=== PATIENT | male | born 1940 | race Caucasian/White ===

== ENCOUNTER → 2017-09-28 | Outpatient (CLI) | payer MEDICARE | END | disposition home or self-care (01) | LOC: RAD 15:39 | PROVIDERS: ATTEND Internal Medicine | DX: M79.89 Other specified soft tissue disorders (principal); R60.0 Localized edema; M79.604 Pain in right leg ==

== ENCOUNTER 2018-08-25 17:42 | Inpatient (IN) | payer MEDICARE ==
[~2018-08-25] VITALS: Ht 182.9 cm; Wt 65.0 kg
[2018-08-25] MEDS ORDERED: SODIUM CHLORIDE FLUSH 10ML SYR IVF ONE (18:00)
[2018-08-25] MEDS ORDERED: DEXTROSE 50%, 50ML SYRINGE IVPush ONE (18:00)
[2018-08-25] MEDS ORDERED: DEXTROSE 50%, 50ML SYRINGE ONE (18:21)
[2018-08-25 18:28] LABS: BASOPHILS # (AUTO) 0.05 x10^3/uL (0-0.1); BASOPHILS % (AUTO) 0 % (0-1); EOSINOPHILS # (AUTO) 0.17 x10^3/uL (0-0.4); EOSINOPHILS % (AUTO) 1 % (1-7); LYMPHOCYTES # (AUTO) 2.14 x10^3/uL (1-3.4); LYMPHOCYTES % (AUTO) 14 % (22-44); MD NO; MEAN CORPUSCULAR HEMOGLOBIN 29.4 pg (27.5-34.5); MEAN CORPUSCULAR HGB CONC 33.9 g/dL (33.2-36.2); MEAN CORPUSCULAR VOLUME 86.5 fL (81-97); MONOCYTES # (AUTO) 0.83 x10^3/uL (0.2-0.8); MONOCYTES % (AUTO) 5 % (2-9); NEUTROPHILS # (AUTO) 12.13 x10^3/uL (1.8-6.8); NEUTROPHILS % (AUTO) 79 % (42-75); PLATELET COUNT 306 x10^3/uL (130-400); RED BLOOD COUNT 4.71 x10^6/uL (4.38-5.82); RED CELL DISTRIBUTION WIDTH 14.3 % (9.4-14.8)
[2018-08-25 18:47] LABS: TROPONIN I < 0.015 ng/mL (0.000-0.045)
[2018-08-25 18:48] LABS: ALBUMIN 4.3 g/dL (3.4-5.0); ANION GAP 10 mmol/L (5-15); CALCIUM 9.2 mg/dL (8.5-10.1); CHLORIDE 109 mmol/L (98-107)
[2018-08-25 18:52] LABS: ALANINE AMINOTRANSFERASE 42 U/L (12-78); ALKALINE PHOSPHATASE 76 U/L (45-117); BILIRUBIN,TOTAL 0.3 mg/dL (0.2-1.0); CREATININE 1.55 mg/dL (0.7-1.3); TOTAL PROTEIN 8.1 g/dL (6.4-8.2)
[2018-08-25] MEDS ORDERED: SODIUM CHLORIDE 0.9% 1,000 ML IV SCH (20:21)
[2018-08-25] MEDS ORDERED: INSU300I SC (20:25)
[2018-08-25] MEDS ORDERED: OMEG-14 PO (20:25)
[2018-08-25] MEDS ORDERED: LOSA1TAB22 PO (20:25)
[2018-08-25] MEDS ORDERED: SAW1CAPS2 PO (20:25)
[2018-08-25] MEDS ORDERED: LINA5TAB PO (20:25)
[2018-08-25] MEDS ORDERED: GLUC-121 PO (20:25)
[2018-08-25] MEDS ORDERED: SIMV20TA3 PO (20:25)
[2018-08-25] MEDS ORDERED: CHOL200085 PO (20:25)
[2018-08-25] MEDS ORDERED: METF500T17 PO (20:25)
[2018-08-25] MEDS ORDERED: AMLO10TA6 PO (20:25)
[2018-08-25] MEDS ORDERED: FOLI20CA PO (20:25)
[2018-08-25] MEDS ORDERED: CARV25TA12 PO (20:25)
[2018-08-25] MEDS ORDERED: ASPI-496 PO (20:25)
[2018-08-25] MEDS ORDERED: ALBI50PE3 SC (20:25)
[2018-08-25] MEDS ORDERED: CYAN250013 PO (20:25)
[2018-08-25] MEDS ORDERED: ONDANSETRON ODT 4 MG PO PRN (20:30)
[2018-08-25] MEDS ORDERED: hydrALAzine 20 MG/ML, 1ML IVPush PRN (20:30)
[2018-08-25] MEDS ORDERED: DOCUSATE 100 MG CAPSULE PO PRN (20:30)
[2018-08-25] MEDS ORDERED: LABETALOL 5MG/ML, 20ML IVPush PRN (20:30)
[2018-08-25] MEDS ORDERED: BISACODYL 10 MG SUPP PR PRN (20:30)
[2018-08-25] MEDS ORDERED: PROMETHAZINE 25 MG/ML, 1ML IM PRN (20:30)
[2018-08-25] MEDS ORDERED: POLYETHYLENE GLYCOL 17 GM PACKET PO PRN (20:30)
[2018-08-25] MEDS ORDERED: ACETAMINOPHEN 325 MG TABLET PO PRN (20:30)
[2018-08-25] MEDS ORDERED: ONDANSETRON 2MG/ML, 2ML IVPush PRN (20:30)
[2018-08-25 21:00] LABS: FREE T4 (FREE THYROXINE) 1.15 ng/dL (0.76-1.46); THYROID STIMULATING HORMONE 2.88 mIU/L (0.358-3.740)
[2018-08-25] MEDS: SIMVASTATIN 20 MG TABLET PO SCH ×2 (21:00→22:05)
[2018-08-25 21:33] LABS: HEMOGLOBIN A1C 8.1 % (4.2-6.3)
[2018-08-25 22:44] LABS: MICROSCOPIC NOT IND
[2018-08-25 22:53] LABS: CULTURE INDICATED? NO
[2018-08-26 01:10] VITALS: BP 162/81
[2018-08-26 03:54] VITALS: BP 159/78
[2018-08-26 05:26] LABS: BASOPHILS # (AUTO) 0.03 x10^3/uL (0-0.1); BASOPHILS % (AUTO) 0 % (0-1); EOSINOPHILS # (AUTO) 0.13 x10^3/uL (0-0.4); EOSINOPHILS % (AUTO) 1 % (1-7); LYMPHOCYTES # (AUTO) 1.53 x10^3/uL (1-3.4); LYMPHOCYTES % (AUTO) 16 % (22-44); MD NO; MEAN CORPUSCULAR HEMOGLOBIN 29.3 pg (27.5-34.5); MEAN CORPUSCULAR HGB CONC 34.2 g/dL (33.2-36.2); MEAN CORPUSCULAR VOLUME 85.6 fL (81-97); MEAN PLATELET VOLUME 7.9 fL (7.4-10.4); MONOCYTES # (AUTO) 0.69 x10^3/uL (0.2-0.8); MONOCYTES % (AUTO) 8 % (2-9); NEUTROPHILS # (AUTO) 6.92 x10^3/uL (1.8-6.8); NEUTROPHILS % (AUTO) 75 % (42-75); PLATELET COUNT 228 x10^3/uL (130-400); RED BLOOD COUNT 4.41 x10^6/uL (4.38-5.82); RED CELL DISTRIBUTION WIDTH 13.9 % (9.4-14.8)
[2018-08-26 05:30] LABS: ALBUMIN 3.5 g/dL (3.4-5.0); ANION GAP 8 mmol/L (5-15); CALCIUM 8.4 mg/dL (8.5-10.1); CHLORIDE 107 mmol/L (98-107)
[2018-08-26 05:34] LABS: ALANINE AMINOTRANSFERASE 33 U/L (12-78); ALKALINE PHOSPHATASE 62 U/L (45-117); BILIRUBIN,TOTAL 0.3 mg/dL (0.2-1.0); CHOL/HDL RATIO 3.9; CHOLESTEROL, TOTAL 124 mg/dL (140-239); HDL CHOL % 26 % (26-37); HDL CHOLESTEROL (DIRECT) 32 mg/dL (40-60); LDL CHOLESTEROL,CALCULATED 60 mg/dL (54-169); LDL/HDL RATIO 1.9 (0.5-3.0); TOTAL PROTEIN 6.8 g/dL (6.4-8.2); TRIGLYCERIDES 159 mg/dL (50-200); VLDL CHOLESTEROL 32 mg/dL (0-25)
[2018-08-26] MEDS ORDERED: ASPIRIN 81 MG TABLET EC PO SCH (06:00)
[2018-08-26] MEDS ORDERED: CARVEDILOL 12.5 MG TABLET PO SCH (06:00)
[2018-08-26 06:11] VITALS: BP 162/78
[2018-08-26] MEDS ORDERED: INSULIN LISPRO 100 UNITS/ML, PEN SQ-INSULIN SCH (07:00)
[2018-08-26 07:50] VITALS: BP 133/81
[2018-08-26] MEDS ORDERED: CYANOCOBALAMIN 1,000 MCG TABLET PO SCH (09:00)
[2018-08-26] MEDS ORDERED: FOLIC ACID 1 MG TABLET PO SCH (09:00)
[2018-08-26] MEDS ORDERED: AMLODIPINE 10 MG TAB PO SCH (09:00)
[2018-08-26] MEDS ORDERED: LOSARTAN 50MG TABLET PO SCH (09:00)
[2018-08-26] MEDS ORDERED: OMEGA-3/FISH OIL CAPSULE PO SCH (09:00)
[2018-08-26] MEDS ORDERED: HYDROCHLOROTHIAZIDE 25 MG TABLET PO SCH (09:00)
[2018-08-26] MEDS ORDERED: SAW PALMETTO XTR PO SCH (09:00)
[2018-08-26] MEDS ORDERED: [UNRECOGNIZED DRUG - OTHER] PO SCH (09:00)
[2018-08-26] MEDS ORDERED: TEMPLATE NON-FORMULARY MED. (Glucosamine/Msm/Chondroitin A** (Glucosamine Chondroit Msm Ta PO SCH (09:00)
[2018-08-26] MEDS ORDERED: CHOLECALCIFEROL 5,000u TAB PO SCH (09:00)
[2018-08-26] MEDS ORDERED: ZINC PICOLIN PO SCH (09:00)
[2018-08-26] MEDS ORDERED: INSULIN GLARGINE 100 UNITS/ML, PEN SQ-INSULIN SCH (21:00)
== END 2018-08-26 11:20 | disposition home or self-care (01) | DRG 637 ==
LOC: ED 20:29 → EDIP 21:19 → 4WST 21:29 → DCLOUNGE 08-26 11:11
PROVIDERS: ADMIT Internal Medicine; ATTEND Internal Medicine
DX: E11.649 Type 2 diabetes mellitus with hypoglycemia without coma (principal); G93.41 Metabolic encephalopathy; N17.0 Acute kidney failure with tubular necrosis; G45.9 Transient cerebral ischemic attack, unspecified; I10 Essential (primary) hypertension; E78.5 Hyperlipidemia, unspecified; D72.829 Elevated white blood cell count, unspecified; Z79.4 Long term (current) use of insulin
CPT/HCPCS: 36415; 70551; 80053; 80061; 81003; 82140; 82962; 83036; 83735; 84439; 84443; 84484; 85025; 93005; 96374; G0378; J7030